=== PATIENT | female | born 1950 | race Caucasian/White ===

== ENCOUNTER 2019-10-22 03:59 | Emergency (ER) | payer MEDICARE, OTHER ==
--- NOTE | 2019-10-22 04:46 | EDM.PDOC ---
ED HPI GENERAL MEDICAL PROBLEM - General Chief Complaint: General Stated Complaint: NAUSEA, ABDOMINAL PAIN Time Seen by Provider: 10/22/19 04:41 Source of Information: Reports: Patient History Limitations: Reports: No Limitations - History of Present Illness INITIAL COMMENTS - FREE TEXT/NARRATIVE: Pt states that approximately one hour prior to arriving in ER she was feeling very nauseous, and burping a lot. States she got up and went to [place] thinking she was having gas, and was having some abdominal cramping which she states moved up into her chest and she began feeling tight in the chest and was feeling a little short of breath. She is concerned that it could be a heart attack. She has had over the past several months sister who had a [place] and a brother who has a a quadr uple bypass. Lower Abdomen Pain Score (Numeric/FACES): 3 - Related Data Allergies Allergy/AdvReac Type Severity Reaction Status Date / Time No Known Allergies Allergy Verified 10/22/19 04:07 Home Meds: Home Meds Acetaminophen [Tylenol] 650 mg PO Q4H PRN 10/22/19 [History] Aspirin [Adult Low Dose Aspirin EC] 81 mg PO DAILY 10/22/19 [History] Cholecalciferol (Vitamin D3) [Vitamin D3] 400 unit PO DAILY 10/22/19 [History] Glucosamine Sulfate 2KCl [Glucosamine] 1,000 mg PO DAILY 10/22/19 [History] Multivitamin [Daily Multiple Vitamin] 1 each PO DAILY 10/22/19 [History] Vitamin E 200 unit PO DAILY 10/22/19 [History] atorvaSTATin [Lipitor] 20 mg PO BEDTIME 10/22/19 [History] Past Medical History HEENT History: Reports: Impaired Vision Cardiovascular History: Reports: High Cholesterol Genitourinary History: Reports: Other (See Below) Other Genitourinary History: Bladder prolapse [employer]ER History: Reports: Psychiatric History: Reports: Anxiety, Depression Other Oncologic History: Endometrial CA Social & Family History - Family History Family Medical History: Noncontributory - Tobacco Use Smoking Status *Q: Never Smoker Second Hand Smoke Exposure: No - Caffeine Use Caffeine Use: Reports: Coffee - Recreational Drug Use Recreational Drug Use: No ED ROS GENERAL - Review of Systems Review Of Systems: See Below Constitutional: Reports: Weakness HEENT: Reports: No Symptoms Cardiovascular: Reports: Chest Pain, Lightheadedness GI/Abdominal: Reports: Nausea : Reports: No Symptoms Musculoskeletal: Reports: Arm Pain Neurological: Reports: No Symptoms Psychiatric: Reports: Anxiety, Depression Hematologic/Lymphatic: Reports: No Symptoms ED EXAM, GENERAL - Physical Exam Exam: See Below Reason Not Obtained: chest presure and abdominal discomfort Exam Limited By: No Limitations General Appearance: Alert, WD/WN, Anxious, Mild Distress Ears: Normal External Exam Nose: Normal Inspection Throat/Mouth: Normal Inspection Head: Atraumatic Neck: Normal Inspection, Supple, Non-Tender, Full Range of Motion Respiratory/Chest: No Respiratory Distress, Lungs Clear, Normal Breath Sounds Cardiovascular: Normal Peripheral Pulses, Regular Rate, Rhythm Peripheral Pulses: 2+: Carotid (L), Carotid (R), Brachial (L), Brachial (R), Radial (L), Radial (R) GI/Abdominal: Normal Bowel Sounds, Soft, Non-Tender Back Exam: Normal Inspection, Full Range of Motion Extremities: Normal Inspection Neurological: Alert, Oriented, CN II-XII Intact, Normal Cognition, Normal Gait Psychiatric: Anxious Skin Exam: Warm EKG INTERPRETATION EKG Date: 10/22/19 Time: 04:51 Rhythm: NSR QRS: RBBB (RBBB,) EKG Interpretation Comments: RBBB,ST elevation Course - Vital Signs Last Recorded V/S: Last Vital Signs Temp 97.1 F 10/22/19 04:10 Pulse 82 10/22/19 04:10 Resp 18 10/22/19 04:10 BP 119/70 10/22/19 04:10 Pulse Ox 94 L 10/22/19 04:10 - Orders/Labs/Meds Labs: Laboratory Tests 10/22/19 10/22/19 10/22/19 Range/Units 05:05 05:05 09:00 WBC 6.2 (4.0-11.0) K/uL RBC 4.11 (3.80-5.80) M/uL Hgb 13.3 (11.5-16.5) g/dL Hct 39.0 (37.0-47.0) % MCV 95 (76-96) fL MCH 32.4 H (27.0-32.0) pg MCHC 34.1 (31.0-35.0) g/dL RDW 12.1 (11.0-16.0) % Plt Count 155 (150-500) K/uL MPV 9.3 (6.0-10.0) fL Neut % (Auto) 71.0 H (45.0-70.0) % Lymph % (Auto) 19.2 L (20.0-40.0) % [place] % (Auto) 8.1 (3.0-10.0) % Eos % (Auto) 1.5 (1.0-5.0) % Baso % (Auto) 0.2 (0.0-0.5) % Neut # (Auto) 4.41 (2.00-7.50) K/uL Lymph # (Auto) 1.19 L (1.50-4.00) K/uL [place] # (Auto) 0.50 (0.20-0.80) K/uL Eos # (Auto) 0.09 (0.04-0.40) K/uL Baso # (Auto) 0.01 L (0.02-0.10) K/uL Sodium 140 (136-145) mmol/L Potassium 3.7 (3.5-5.1) mmol/L Chloride 107 (98-107) mmol/L Carbon Dioxide 26.3 (21.0-32.0) mmol/L Anion Gap 10.4 (5.0-15.0) mmol/L BUN 14 (8-26) mg/dL Creatinine 0.82 (0.55-1.02) mg/dL Est Cr Clr Drug Dosing 62.97 mL/min Estimated GFR (MDRD) > 60 (>60) MLS/MIN BUN/Creatinine Ratio 17.1 (6-25) Glucose 114 H (74-100) mg/dL Calcium 8.2 L (8.5-10.1) mg/dL Total Bilirubin 0.4 (0.0-1.0) mg/dL AST 22 (15-37) U/L ALT 30 (12-78) U/L Alkaline Phosphatase 69 (46-116) U/L Troponin I < 0.017 < 0.017 (0.000-0.060) ng/mL Total Protein 6.5 (6.4-8.2) g/dL Albumin 3.5 (3.4-5.0) g/dL Globulin 3.0 (2.2-4.2) g/dL Albumin/Globulin Ratio 1.2 (0.8-2.0) Meds: Medications Discontinued Medications Generic Name Dose Route Start Last Admin Trade Name Freq PRN Reason Stop Dose Admin Aspirin 324 mg 10/22/19 04:57 10/22/19 05:30 Aspirin PO 10/22/19 04:58 324 mg ONETIME ONE Administration Hydroxyzine HCl 25 mg 10/22/19 04:54 10/22/19 05:58 Atarax PO 10/22/19 04:55 25 mg ONETIME ONE Administration Morphine Sulfate 2 mg 10/22/19 04:55 10/22/19 05:59 Morphine IVPUSH 10/22/19 04:56 Not Given ONETIME ONE Sodium Chloride 10 ml 10/22/19 04:57 Saline Flush FLUSH ASDIRECTED PRN Keep Vein Open Departure - Departure Time of Disposition: 10:00 Disposition: Refer to Observation Condition: Good Clinical Impression: Chest discomfort Referrals: PCP,None [Primary Care Provider] - Forms: ED Department Discharge Care Plan Goals: Please follow up with your primary MD when you return to [facility] for referral for possible stress test. Return to ED for any increased or new concerning symptoms. Continue your medications as before.
[2019-10-22] MEDS ORDERED: hydrOXYzine HCl 25 MG Tab PO ONE (04:54)
[2019-10-22] MEDS ORDERED: Morphine 2 MG/ML SYRINGE IVPUSH ONE (04:55)
[2019-10-22] MEDS ORDERED: Aspirin 81 MG Tab.Chew PO ONE (04:57)
[2019-10-22] MEDS ORDERED: Sodium Chloride 0.9% 10 ML Syringe FLUSH PRN (04:57)
--- NOTE | 2019-10-22 08:17 | CR ---
Date of Service: 10/22/19 Clinical Data: Pain AP CHEST: The heart size is normal. The lungs are clear. No pneumothorax. No pleural effusions. No evidence of acute intrathoracic disease. [id number] [facility]
--- NOTE | 2019-10-22 08:57 | EDM.PDOC ---
ED HPI GENERAL MEDICAL PROBLEM - General Chief Complaint: General Stated Complaint: NAUSEA, ABDOMINAL PAIN Time Seen by Provider: 10/22/19 04:41 Source of Information: Reports: Patient History Limitations: Reports: No Limitations - History of Present Illness INITIAL COMMENTS - FREE TEXT/NARRATIVE: Pt states that approximately one hour prior to arriving in ER she was feeling very nauseous, and burping a lot. States she got up and went to [place] thinking she was having gas, and was having some abdominal cramping which she states moved up into her chest and she began feeling tight in the chest and was feeling a little short of breath. She is concerned that it could be a heart attack. She has had over the past several months sister who had a [place] and a brother who has a a quadr uple bypass. Lower Abdomen Pain Score (Numeric/FACES): 3 - Related Data Allergies Allergy/AdvReac Type Severity Reaction Status Date / Time No Known Allergies Allergy Verified 10/22/19 04:07 Home Meds: Home Meds Acetaminophen [Tylenol] 650 mg PO Q4H PRN 10/22/19 [History] Aspirin [Adult Low Dose Aspirin EC] 81 mg PO DAILY 10/22/19 [History] Cholecalciferol (Vitamin D3) [Vitamin D3] 400 unit PO DAILY 10/22/19 [History] Glucosamine Sulfate 2KCl [Glucosamine] 1,000 mg PO DAILY 10/22/19 [History] Multivitamin [Daily Multiple Vitamin] 1 each PO DAILY 10/22/19 [History] Vitamin E 200 unit PO DAILY 10/22/19 [History] atorvaSTATin [Lipitor] 20 mg PO BEDTIME 10/22/19 [History] Past Medical History HEENT History: Reports: Impaired Vision Cardiovascular History: Reports: High Cholesterol Genitourinary History: Reports: Other (See Below) Other Genitourinary History: Bladder prolapse [employer]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: Psychiatric History: Reports: Anxiety, Depression Other Oncologic History: Endometrial [place] Social & Family History - Family History Family Medical History: Noncontributory - Tobacco Use Smoking Status *Q: Never Smoker Second Hand Smoke Exposure: No - Caffeine Use Caffeine Use: Reports: Coffee - Recreational Drug Use Recreational Drug Use: No ED ROS GENERAL - Review of Systems HEENT: Reports: No Symptoms Course - Vital Signs Last Recorded V/S: Last Vital Signs Temp 97.1 F 10/22/19 04:10 Pulse 82 10/22/19 04:10 Resp 18 10/22/19 04:10 BP 119/70 10/22/19 04:10 Pulse Ox 94 L 10/22/19 04:10 - Orders/Labs/Meds Orders: Active Orders 24 hr Category Date Time Status Cardiac Monitoring [RC] .As Directed Care 10/22/19 04:57 Active EKG Documentation Completion [RC] ASDIRECTED Care 10/22/19 05:00 Active Oxygen Therapy [RC] ASDIRECTED Care 10/22/19 04:57 Active TROPONIN I [CHEM] Stat Lab 10/22/19 09:00 Ordered Sodium Chloride 0.9% [Saline Flush] Med 10/22/19 04:57 Active 10 ml FLUSH ASDIRECTED PRN ED Antiemetic Medication Reflex [OM.PC] Stat Oth 10/22/19 04:57 Ordered Peripheral IV Insertion Adult [OM.PC] Stat Oth 10/22/19 04:57 Ordered Medication Orders Sodium Chloride (Saline Flush) 10 ml FLUSH ASDIRECTED PRN PRN Reason: Keep Vein Open Labs: Laboratory Tests 10/22/19 10/22/19 Range/Units 05:05 05:05 WBC 6.2 (4.0-11.0) K/uL RBC 4.11 (3.80-5.80) M/uL Hgb 13.3 (11.5-16.5) g/dL Hct 39.0 (37.0-47.0) % MCV 95 (76-96) fL MCH 32.4 H (27.0-32.0) pg MCHC 34.1 (31.0-35.0) g/dL RDW 12.1 (11.0-16.0) % Plt Count 155 (150-500) K/uL MPV 9.3 (6.0-10.0) fL Neut % (Auto) 71.0 H (45.0-70.0) % Lymph % (Auto) 19.2 L (20.0-40.0) % [place] % (Auto) 8.1 (3.0-10.0) % Eos % (Auto) 1.5 (1.0-5.0) % Baso % (Auto) 0.2 (0.0-0.5) % Neut # (Auto) 4.41 (2.00-7.50) K/uL Lymph # (Auto) 1.19 L (1.50-4.00) K/uL [place] # (Auto) 0.50 (0.20-0.80) K/uL Eos # (Auto) 0.09 (0.04-0.40) K/uL Baso # (Auto) 0.01 L (0.02-0.10) K/uL Sodium 140 (136-145) mmol/L Potassium 3.7 (3.5-5.1) mmol/L Chloride 107 (98-107) mmol/L Carbon Dioxide 26.3 (21.0-32.0) mmol/L Anion Gap 10.4 (5.0-15.0) mmol/L BUN 14 (8-26) mg/dL Creatinine 0.82 (0.55-1.02) mg/dL Est Cr Clr Drug Dosing 62.97 mL/min Estimated GFR (MDRD) > 60 (>60) MLS/MIN BUN/Creatinine Ratio 17.1 (6-25) Glucose 114 H (74-100) mg/dL Calcium 8.2 L (8.5-10.1) mg/dL Total Bilirubin 0.4 (0.0-1.0) mg/dL AST 22 (15-37) U/L ALT 30 (12-78) U/L Alkaline Phosphatase 69 (46-116) U/L Troponin I < 0.017 (0.000-0.060) ng/mL Total Protein 6.5 (6.4-8.2) g/dL Albumin 3.5 (3.4-5.0) g/dL Globulin 3.0 (2.2-4.2) g/dL Albumin/Globulin Ratio 1.2 (0.8-2.0) Meds: Medications Generic Name Dose Route Start Last Admin Trade Name Freq PRN Reason Stop Dose Admin Sodium Chloride 10 ml 10/22/19 04:57 Saline Flush FLUSH ASDIRECTED PRN Keep Vein Open Discontinued Medications Generic Name Dose Route Start Last Admin Trade Name Freq PRN Reason Stop Dose Admin Aspirin 324 mg 10/22/19 04:57 10/22/19 05:30 Aspirin PO 10/22/19 04:58 324 mg ONETIME ONE Administration Hydroxyzine HCl 25 mg 10/22/19 04:54 10/22/19 05:58 Atarax PO 10/22/19 04:55 25 mg ONETIME ONE Administration Morphine Sulfate 2 mg 10/22/19 04:55 10/22/19 05:59 Morphine IVPUSH 10/22/19 04:56 Not Given ONETIME ONE Departure - Departure Condition: Good Clinical Impression: Chest discomfort - Discharge Information Sepsis Event Note (ED) - Evaluation Sepsis Screening Result: No Definite Risk - Focused Exam Vital Signs: Vital Signs Temp Pulse Resp BP Pulse Ox 10/22/19 04:10 97.1 F 82 18 119/70 94 L
--- NOTE | 2019-10-22 09:57 | PCM.SN.2 ---
- Free Text/Narrative Note: Patient aware of no changes in the 2nd troponin level. We discussed follow up with PMD when she returns home for reevaluation and possible stress test referral, and when to return to ED: increased or new CP, SOB, weakness, dizziness, or any other concerning symptoms. She verbalized understanding. We also discussed Atarax its common uses and the ability to drive after taking this medicine as she had concerns. All questions were answered prior to DC.
== END 2019-10-22 07:52 ==
LOC: LB.ED 03:59 → UNDOADMOB 07:52 → LB.MS 07:52 → UNDODISOB 10:04
DX: R07.89 Other chest pain (principal); R10.9 Unspecified abdominal pain; E78.00 Pure hypercholesterolemia, unspecified; R11.0 Nausea; Z79.82 Long term (current) use of aspirin; Z79.899 Other long term (current) drug therapy
CPT/HCPCS: 36415; 71045; 80053; 84484; 85025; 93005; 99285; A9270